=== PATIENT | female | born 1985 | race Caucasian/White ===

== ENCOUNTER 2016-12-02 18:09 | Emergency (ER) | payer SELFPAY | END 2016-12-02 21:00 | disposition home or self-care (01) | LOC: D.ER 18:09 | DX: J06.9 Acute upper respiratory infection, unspecified (principal) ==

== ENCOUNTER 2018-11-08 13:49 | Inpatient (IN) | payer MEDICAID ==
[~2018-11-08] VITALS: Ht 160 cm; Wt 47.7 kg
[2018-11-08] VITALS (9 sets, daily range): BP systolic 89–107; BP diastolic 61–79
[2018-11-08 14:51] LABS: BASOPHILS 0.3 % (0-2); EOSINOPHILS 0.6 % (0-7); HEMATOCRIT 38.8 % (36.0-48.0); HEMOGLOBIN 12.8 g/dL (12-16); IMMATURE GRANULOCYTES 0.3 % (0-5); LYMPHOCYTES 21.5 % (15-50); MCH 30.3 pg (26.0-34.0); MCV 91.7 fL (80.0-100.0); MEAN PLATELET VOLUME 9.4 fL (7.4-10.4); MONOCYTES 6.8 % (2-11); NEUTROPHILS 70.5 % (40-80); PLATELET COUNT 292 10x3/uL (130-400); RBC 4.23 10x6/uL (4.00-5.40); RDW 13.1 % (11.5-14.5); WBC 11.9 10x3/uL (4.8-10.8)
[2018-11-08 14:59] LABS: APTT 29.1 SECONDS (22.8-39.4); INR 1.24 (0.85-1.17)
[2018-11-08 15:06] LABS: ALBUMIN 2.6 g/dL (3.4-5.0); ALKALINE PHOSPHATASE 135 U/L (46-116); ALT (SGPT) 129 U/L (10-68); BILIRUBIN - TOTAL 0.33 mg/dL (0.2-1.3); CALC OSMOLALITY 279 mosm/kg (275-300); CALCIUM 7.8 mg/dL (8.5-10.1); CARBON DIOXIDE 25.4 mmol/L (21.0-32.0); CHLORIDE - SERUM 104 mmol/L (98-107); CREATININE - SERUM 0.9 mg/dL (0.6-1.3); GLUCOSE 76 mg/dL (74-106); POTASSIUM - SERUM 4.3 mmol/L (3.5-5.1); PROTEIN - SERUM 5.9 g/dL (6.4-8.2); SODIUM 140 mmol/L (136-145); UREA NITROGEN 17 mg/dL (7-18); eGFR NON AFRICAN AMERICAN 77 mL/min (90-120)
[2018-11-08 15:16] LABS: CKMB 1.9 U/L (0.0-3.6); CREATINE KINASE 77 UL (21-215); MAGNESIUM - SERUM 1.9 mg/dL (1.8-2.4); TROPONIN-I 0.023 ng/mL (0.000-0.060)
--- NOTE | 2018-11-08 16:00 | NUR ---
PT STABLE, CALL LIGHT WITHIN REACH, DENIES NEEDS, WILL CONTINUE TO MONITOR.
--- NOTE | 2018-11-08 17:00 | NUR ---
PT STABLE,CALL LIGHT WITHIN REACH, PT ASKING FOR PHONE FLAKE MILLER HELPER. PT STABLE,CALL LIGHT WITHIN REACH, WILL CONTINUE TO MONITOR.
--- NOTE | 2018-11-08 18:05 | NUR ---
PT STABLE, CALL LIGHT WITHIN REACH, DENIES NEEDS, WILL CONTINUE TO MONITOR.
--- NOTE | 2018-11-08 19:07 | NUR ---
PT REPORT CALLED TO NURSE MIKAL. PT STABLE, CALL LIGHT WITHIN REACH, DENIES NEEDS, WILL CONTINUE TO MONITOR.
[2018-11-08 19:30] LABS: CKMB 1.9 U/L (0.0-3.6); CREATINE KINASE 63 UL (21-215); TROPONIN-I 0.034 ng/mL (0.000-0.060)
--- NOTE | 2018-11-08 19:31 | NUR ---
PT ARRIVED TO ROOM 2115, PT IS AAO UP AD ALEJANDRO. PT HAS RIGHT AC 20G WITH CARDIZEM INFUSING AT 5, STARTED NS INFUSING AT 125. PT GIVEN A SANDWINCH AND WATER. PT PLACED ON TELEMETRY 105 ST. PT BEDLOW AND CALL LIGHT IN REACH. NAME AND DATE PLACED ON BOARD. WILL CPOC
[2018-11-09] VITALS (7 sets, daily range): BP systolic 92–118; BP diastolic 55–69; Ht 160 cm; Wt 47.7 kg
[2018-11-09 00:56] LABS: CKMB 1.8 U/L (0.0-3.6); CREATINE KINASE 70 UL (21-215); TROPONIN-I 0.029 ng/mL (0.000-0.060)
--- NOTE | 2018-11-09 02:37 | NUR ---
PT ASLEEP LAYING ON RIGHT SIDE. PT HAS NO S/S OF DISTRESS. NS INFUSING TO RIGHT AC, CARDIZEM INFUSING AT 5. [address] ON THE MONITOR. PT HAS NO S/S OF DISTRESS. BEDLOW AND CALL LIGHT IN REACH. WILL CPOC
[2018-11-09 06:27] LABS: BASOPHILS 0.4 % (0-2); EOSINOPHILS 2.9 % (0-7); HEMATOCRIT 36.1 % (36.0-48.0); HEMOGLOBIN 11.7 g/dL (12-16); IMMATURE GRANULOCYTES 0.2 % (0-5); LYMPHOCYTES 27.9 % (15-50); MCH 29.5 pg (26.0-34.0); MCHC 32.4 g/dL (31.0-37.0); MCV 91.2 fL (80.0-100.0); MEAN PLATELET VOLUME 9.6 fL (7.4-10.4); MONOCYTES 6.6 % (2-11); PLATELET COUNT 346 10x3/uL (130-400); RBC 3.96 10x6/uL (4.00-5.40); RDW 13.1 % (11.5-14.5); WBC 9.7 10x3/uL (4.8-10.8)
--- NOTE | 2018-11-09 07:09 | NUR ---
PT RESTING IN BED. PT 83 SR. PT HAS NO S/S OF DISTRESS BEDLOW AND CALL LIGHT IN REACH. WILL CONTINUE TO MONITOR
[2018-11-09 07:11] LABS: ALBUMIN 2.4 g/dL (3.4-5.0); ALKALINE PHOSPHATASE 116 U/L (46-116); ALT (SGPT) 106 U/L (10-68); CALC OSMOLALITY 287 mosm/kg (275-300); CALCIUM 7.8 mg/dL (8.5-10.1); CARBON DIOXIDE 24.3 mmol/L (21.0-32.0); CHLORIDE - SERUM 108 mmol/L (98-107); CREATININE - SERUM 0.9 mg/dL (0.6-1.3); GLUCOSE 95 mg/dL (74-106); POTASSIUM - SERUM 4.5 mmol/L (3.5-5.1); PROTEIN - SERUM 6.1 g/dL (6.4-8.2); SODIUM 143 mmol/L (136-145); UREA NITROGEN 20 mg/dL (7-18); eGFR NON AFRICAN AMERICAN 77 mL/min (90-120)
[2018-11-09 07:12] LABS: CKMB 1.5 U/L (0.0-3.6); CREATINE KINASE 77 UL (21-215); TROPONIN-I < 0.017 ng/mL (0.000-0.060)
[2018-11-09 07:22] LABS: BILIRUBIN - TOTAL 0.11 mg/dL (0.2-1.3)
--- NOTE | 2018-11-09 15:41 | NUR ---
TELEMETRY ST 108. IV PATENT. CALL LIGHT IN REACH. WILL CONT. PLAN OF CARE.
--- NOTE | 2018-11-09 16:49 | NUR ---
UP AMBULATING HALLWAY. GAIT STEADY.
--- NOTE | 2018-11-09 19:19 | NUR ---
pt not in room upon rounds. will check hallway to see if pt is walking unit and check telemetry to monitor heart rate. placed name and date on board. will update notes once pt is seen.
--- NOTE | 2018-11-09 20:00 | NUR ---
PT BACK INTO ROOM. EXPLAINED TO PT NOT TO BE GONE SO LONG, TELEMETRY WAS READING WHEN CHECKED SO PT WAS IN BUILDING, SHE ADMITED TO BEING OUT SIDE AT ONE TIME FOR A CIGG. EDUCATED IN RISK OF SMOKING AND RISK OF SMOKING WITH A NICOTINE PATCH ON. PT STATED SHE TOOK OFF THE PATCH HOURS AGO BECAUSE IT WAS CAUSING NIGHTMARES AND HER FATHER SAID SHE COULD BE HAVING AN ALLERGIC REACTION. SPOKE WITH PT ABOUT RULES, NO LEAVING PARKING LOT OR REPORTED TO POLICE. NO LEAVING AFTER STRONG MEDICATIONS GIVEN. AND IF GONE LONGER THAN 30 MINS NURSE WILL CALL SECERITY. PT VERBALIZED UNDERSTANDING AND ASKED FOR SOMETHING FOR RESTLESSNESS. WILL CHECK ORDERS
--- NOTE | 2018-11-09 22:52 | NUR ---
PT GIVEN ATIVAN FOR ANXIETY AND RESTLESSNESS. PT WILL CALL FOR ASSIST WHEN NEEDED,. WILL CPOC
--- NOTE | 2018-11-10 03:03 | NUR ---
PT SITTING UP IN BED COMPLAINING OF RESTLESSNESS AND ANXIETY ASKING FOR THE MED I GAVE HER EARLIER. GAVE PT AN ATIVAN ORDERED. PT HAS NO S/S OF DISTRESS. BEDLOW AND CALL LIGHT IN REACH. WILL CPOC
--- NOTE | 2018-11-10 03:17 | NUR ---
PT CALLING FOR A SNACK. PT RECEIVED.
--- NOTE | 2018-11-10 06:28 | NUR ---
PT ASLEEP. AROUSES TO VERBAL STIMULI. PT RESP EVEN AND UNLABORED. NO S/S OF DISTRESS. PT AAO. UP AD ALEJANDRO. DENIES ANY NEEDS. HAS CALL LIGHT IN REACH. WILL CALL FOR ASSIST WHEN NEEDED. WILL CPOC
[2018-11-10 07:50] LABS: ALBUMIN 2.1 g/dL (3.4-5.0); ALKALINE PHOSPHATASE 108 U/L (46-116); ALT (SGPT) 91 U/L (10-68); BILIRUBIN - TOTAL 0.12 mg/dL (0.2-1.3); CALC OSMOLALITY 280 mosm/kg (275-300); CARBON DIOXIDE 23.8 mmol/L (21.0-32.0); CHLORIDE - SERUM 107 mmol/L (98-107); CREATININE - SERUM 0.9 mg/dL (0.6-1.3); GLUCOSE 92 mg/dL (74-106); POTASSIUM - SERUM 4.1 mmol/L (3.5-5.1); PROTEIN - SERUM 5.5 g/dL (6.4-8.2); SODIUM 140 mmol/L (136-145); UREA NITROGEN 17 mg/dL (7-18); eGFR NON AFRICAN AMERICAN 77 mL/min (90-120)
[2018-11-10 07:52] LABS: BASOPHILS 0.6 % (0-2); EOSINOPHILS 4.2 % (0-7); HEMATOCRIT 32.9 % (36.0-48.0); HEMOGLOBIN 10.6 g/dL (12-16); IMMATURE GRANULOCYTES 0.2 % (0-5); LYMPHOCYTES 23.2 % (15-50); MCH 29.4 pg (26.0-34.0); MCHC 32.2 g/dL (31.0-37.0); MCV 91.1 fL (80.0-100.0); MEAN PLATELET VOLUME 9.5 fL (7.4-10.4); MONOCYTES 8.3 % (2-11); NEUTROPHILS 63.5 % (40-80); PLATELET COUNT 368 10x3/uL (130-400); RBC 3.61 10x6/uL (4.00-5.40); RDW 12.8 % (11.5-14.5); WBC 10.5 10x3/uL (4.8-10.8)
[2018-11-10 08:39] VITALS: BP 107/67
--- NOTE | 2018-11-10 10:03 | NUR ---
TELEMETRY SR. UP AMBULATING HALLWAY. WILL CONT. PLAN OF CARE.
[2018-11-10] MEDS ORDERED: LANOXIN125 MCG PO (13:20)
--- NOTE | 2018-11-10 17:15 | MORECARE ---
CASE MANAGEMENT DISCHARGE SUMMARY PATIENT: JAYCE FERNÁNDEZ UNIT: [id number] ADM DATE: 11/08/18 AGE: 33 : [birth year] SEX: F ROOM/BED: D.4366 AUTHOR: NANDA,DOC PHYSICIAN: REFERRING PHYSICIAN: ALEKSANDR ARCHER DO DATE OF SERVICE: 11/10/18 Discharge Plan Patient Name: JAYCE FERNÁNDEZ Facility: [facility]:[place] : 1985 Planned Disposition: Home Anticipated Discharge Date: 11/10/18 Discharge Date: Expected LOS: 2 Initial Reviewer: [email or web address] Initial Review Date: 11/10/2018 Generated: 11/10/18 6:14 pm Comments DCP- Discharge Planning Updated by [email or web address]: Panda Sears on 11/10/18 4:[address] Patient Name: JAYCE FERNÁNDEZ Admission Status: ER Accout number: [id number] Admission Date: 11-08-2018 : 1985 Admission Diagnosis:SUPRAVENTRICULAR TACHYCARDIA Attending: ALEKSANDR ARCHER Current LOS: 2 Anticipated DC Date: 11-10-2018 Planned Disposition: Home Primary Insurance: MEDICAID [place] PENDING Discharge Planning Comments: CM MET WITH PT IN ROOM TO DISCUSS DISCHARGE PLANNING AND NEEDS. PT REPORTS LIVING AT HOME INDEPENDENTLY WITH A FRIEND. PT HAS NO MEDICAL EQUIPMENT AND NO OUTSIDE SERVICES ASSISTING IN THE HOME. CM DISCUSSED AVAILABILITY OF HOME HEALTH, REHAB SERVICES AND MEDICAL EQUIPMENT. PT DENIES DISCHARGE NEEDS, REPORTS HER FRIEND WILL PICK HER UP FOR DISCHARGE HOME. CM PROVIDED [facility] INFORMATION TO PT. Halftone Operator: Panda Sears DCPIA - Discharge Planning Initial Assessment Updated by [email or web address]: Panda Sears on 11/10/18 5:07 pm * Is the patient Alert and Oriented? Yes * How many steps to enter\exit or inside your home? NONE * PCP NONE - REFERRED TO [facility] IN [place] * Pharmacy [address] * Preadmission Environment Home with Family * ADLs Independent * Equipment None * Other Equipment NO MEDICAL EQUIPMENT PROVIDER PREFERENCE * List name and contact numbers for known caregivers / representatives who currently or will assist patient after discharge: CHALINO RIBEIRO, MOTHER, * Verbal permission to speak to the caregivers and representatives has been obtained from the patient. No * Community resources currently utilized None * Please name any agencies selected above. NONE * Additional services required to return to the preadmission environment? No * Can the patient safely return to the preadmission environment? Yes * Has this patient been hospitalized within the prior 30 days at any hospital? No Patient Name: JAYCE FERNÁNDEZ Page [phone] at 1715 All edits/amendments must be made on the electronic document DICTATION DATE: 11/10/181713 KILN STOKER: LEONIDAS 11/10/181713 RPT#: [id number] DC DATE: STATUS: ADM IN [facility] [address] [place] [address] END OF REPORT
--- NOTE | 2018-11-10 17:35 | NUR ---
IV AND TELEMETRY DCD. DC PLANS GIVEN. UNDERSTANDING VOICED.
--- NOTE | 2018-11-18 12:54 | EC ---
PATIENT:JAYCE FERNÁNDEZ DATE OF SERVICE: 11/08/18 SEX: F MEDICAL RECORD: [id number] DATE OF : [birth year] LOCATION:D.M2 D.211 AGE OF PATIENT: 33 ADMISSION DATE: 11/08/18 REFERRING PHYSICIAN: INTERPRETING PHYSICIAN: DIXIE SHAIKH MD ECHOCARDIOGRAM REPORT ECHO CHARGES 4 ECHO COMPLETE Date: 11/09/18 CLINICAL DIAGNOSIS: SVT HX OF IV DRUG USE ECHOCARDIOGRAPHIC MEASUREMENTS (adult normal given) AC root (d.<3.7cm) 3.5 cm LV Septum d (<1.2 cm> 1.0 cm Valve Excursion 1.5 cm LV Septum (systole) 1.3 cm Left Atria (s.<4.0cm> 3.1 cm LVPW d(<1.2cm) 1.1 cm RV (d.<2.3cm) 3.2 cm LVPW (sytole) 1.3 cm LV diastole(<5.6CM) 4.4 cm MV E-F(>70mm/sec) cm LV systole 3.5 cm LVOT Diameter 1.6 cm MV exc.(>10mm) 1.7 cm Est.ejection fraction (50-75%) % DOPPLER: LVIT cm/sec A 94.0 cm/sec E 107 cm/sec LA cm/sec RVSP 51 mmHg LVOT 104 cm/sec AOP1/2T m/s Asc. Ao 139 cm/sec RVOT 87 cm/sec RA cm/sec PA 134 cm/sec AV Gradient Peak 778 mmHg AV Mean 4.52 mmHg AV Area 1.5 cm MV Gradient Peak 6.38 mmHg MV Mean 2.58 mmHg MV Area cm COMMENTS: Abap Developer: 2 YI FAJARDO Clarifier Operator Helper: 3 Dr. Leroy TAPE# PACS Pericardial Effusion N DATE OF SERVICE: Adequate 2-D echo, color flow and spectral Doppler, and M-mode. No LVH. LV internal dimensions are normal. Wall motion is normal. EF is greater than or equal to 55%. Aortic valve is tricuspid. No evidence of stenosis by Doppler interrogation. Left atrium is normal. Mitral valve shows no prolapse. Trace MR. Right-sided chambers are grossly normal. Trace TR. TRANSINT:[id number] Voice Confirmation ID: [id number] DOCUMENT ID: [id number] ECHOCARDIOGRAM REPORT [id number] JAYCE FERNÁNDEZ,DIXIE Alcala MD at 1254 CC: [id number] DICTATION DATE: 11/09/18 140 FORENSIC PHOTOGRAPHER: 11/09/18 1858 DIS IN 11/10/18 [place] [id number] [place] [id number]
--- NOTE | 2018-11-18 12:54 | CN ---
PATIENT NAME:JAYCE FERNÁNDEZ MEDICAL RECORD: [id number] : [birth year] LOCATION:D.Anabela D.2116 ADMIT DATE: 11/08/18 ACCOUNT: [id number] CONSULTING PHYSICIAN: DIXIE SHAIKH MD REFERRING PHYSICIAN: ALEKSANDR ARCHER DO DATE OF CONSULTATION: 11/09/2018 HISTORY OF PRESENT ILLNESS: A 33-year-old female with history of methamphetamine abuse, admitted with SVT, last use by her report was 3 days ago. She has a history of SVT apparently in the past. She reports no fever or chills, but feeling poorly the last 2 weeks. We are asked to see concerning her cardiovascular status. PAST MEDICAL HISTORY: Includes history of supraventricular tachycardia. ALLERGIES: None known. MEDICATIONS: None chronically. SOCIAL HISTORY: Meth use as described above. Does smoke about half pack a day, nondrinker. REVIEW OF SYSTEMS: The patient reports easy bruising but reports no swollen glands. The patient reports no fever, no night sweats, no significant weight gain, no significant weight loss. No significant exercise tolerance. The patient reports no dry eyes, no irritation, no vision change. Patient reports no difficulty hearing and no ear pain. Patient reports no frequent nose bleeds or nose and sinus problems. Patient reports on arm pain on exertion. No shortness of breath while lying down. No history of heart murmur. Patient reports no cough, no wheezing or coughing up blood. Patient reports no abdominal pain, no vomiting. Normal appetite. No diarrhea and not vomiting blood. No nausea and no constipation. Patient reports no incontinence. No difficulty urinating. No hematuria. No increased frequency. Patient reports no muscle aches. No weakness, no arthralgias, no back pain. No swelling of the extremities. Patient reports no abnormal mole, no jaundice, no rashes. Reports no loss of consciousness. No weakness and no numbness. No seizures, dizziness, or headaches. The patient reports no depression, no sleep disturbance, feeling safe in a relationship and no alcohol abuse. Patient reports on fatigue. Reports no runny nose or sinus pressure. No itching, no hives, and no frequent sneezing. PHYSICAL EXAMINATION: GENERAL: Somewhat chronically ill-appearing female in no acute distress. VITAL SIGNS: Her pulse 90, blood pressure was 96/59. HEENT: Normocephalic, atraumatic. NECK: No JVD or bruit. HEART: Regular, soft I/ systolic ejection murmur. LUNGS: Good air excursion. ABDOMEN: Soft, nontender. EXTREMITIES: Pulses 2+. No edema. NEUROLOGIC: Grossly intact. DIAGNOSTIC DATA: ECG shows no acute changes post-cardioversion. IMPRESSION AND PLAN: Supraventricular tachycardia certainly exacerbated by CONSULT REPORT [id number] JAYCE FERNÁNDEZ methamphetamine use. Given the chronicity of her illness, certainly SBE is concern here. We will plan for echocardiograph study. She currently does not have stigmata of infective endocarditis on clinical exam. TRANSINT:[id number] Voice Confirmation ID: [id number] DOCUMENT ID: [id number] DIXIE SHAIKH MD at 1254 CC: [id number] DICTATION DATE: 11/09/18 0840 PARASITOLOGY TEACHER: 11/09/18 1001 DIS IN 11/10/18 [place] [id number] [place] [address]
== END 2018-11-10 17:36 | disposition home or self-care (01) | DRG 309 ==
LOC: D.ER 13:49 → D.M2 19:22
PROVIDERS: Family Medicine; ADMIT Family Medicine
DX: I47.1 Supraventricular tachycardia (principal); F17.213 Nicotine dependence, cigarettes, with withdrawal; F15.10 Other stimulant abuse, uncomplicated; M25.532 Pain in left wrist; M25.512 Pain in left shoulder

== ENCOUNTER 2019-06-13 12:59 | Emergency (ER) | payer MEDICAID ==
[~2019-06-13] VITALS: Ht 160 cm; Wt 50.0 kg
[~2019-06-13 12:59] MED LIST: LANOXIN125 MCG PO
[2019-06-13 13:06] VITALS: Ht 160 cm; Wt 50.0 kg
[2019-06-13 13:34] LABS: BASOPHILS 0.6 % (0-2); EOSINOPHILS 1.5 % (0-7); HEMATOCRIT 35.7 % (36.0-48.0); HEMOGLOBIN 12.1 g/dL (12-16); IMMATURE GRANULOCYTES 0.2 % (0-5); LYMPHOCYTES 34.1 % (15-50); MCH 30.1 pg (26.0-34.0); MCHC 33.9 g/dL (31.0-37.0); MCV 88.8 fL (80.0-100.0); MEAN PLATELET VOLUME 9.6 fL (7.4-10.4); MONOCYTES 6.6 % (2-11); RBC 4.02 10x6/uL (4.00-5.40); RDW 13.2 % (11.5-14.5); WBC 8.8 10x3/uL (4.8-10.8)
[2019-06-13 13:43] LABS: PLATELET COUNT 238 10x3/uL (130-400)
[2019-06-13 13:44] LABS: ALKALINE PHOSPHATASE 148 U/L (46-116); ALT (SGPT) 161 U/L (10-68); BILIRUBIN - TOTAL 0.36 mg/dL (0.2-1.3); CALC OSMOLALITY 276 mosm/kg (275-300); CALCIUM 8.7 mg/dL (8.5-10.1); CARBON DIOXIDE 27.9 mmol/L (21.0-32.0); CHLORIDE - SERUM 105 mmol/L (98-107); CREATININE - SERUM 1.1 mg/dL (0.6-1.3); GLUCOSE 70 mg/dL (74-106); POTASSIUM - SERUM 4.6 mmol/L (3.5-5.1); PROTEIN - SERUM 6.3 g/dL (6.4-8.2); SODIUM 138 mmol/L (136-145); UREA NITROGEN 20 mg/dL (7-18); eGFR NON AFRICAN AMERICAN 60 mL/min (90-120)
[2019-06-13 13:49] LABS: APTT 30.1 SECONDS (22.8-39.4); INR 1.21 (0.85-1.17); PROTIME 14.8 SECONDS (11.6-15.0)
[2019-06-13 13:56] LABS: CKMB 1.7 U/L (0.0-3.6); CREATINE KINASE 276 UL (21-215)
[2019-06-13 13:57] LABS: TROPONIN-I < 0.017 ng/mL (0.000-0.060)
[2019-06-13 14:59] LABS: UDS - AMPHET POSITIVE QUAL (NEGATIVE); UDS - BARB NEGATIVE QUAL (NEGATIVE); UDS - BENZO POSITIVE QUAL (NEGATIVE); UDS - COCAINE NEGATIVE QUAL (NEGATIVE); UDS - OPIATE NEGATIVE QUAL (NEGATIVE); UDS - PCP NEGATIVE QUAL (NEGATIVE); UDS - THC POSITIVE QUAL (NEGATIVE)
[2019-06-13 16:09] VITALS: BP 105/70
== END 2019-06-13 16:15 | disposition home or self-care (01) ==
LOC: D.ER 12:59
PROVIDERS: Family Medicine
DX: F15.10 Other stimulant abuse, uncomplicated (principal); E86.0 Dehydration; I47.1 Supraventricular tachycardia

== ENCOUNTER 2019-12-22 01:44 | Observation (INO) | payer MEDICAID ==
[~2019-12-22] VITALS: Ht 160 cm; Wt 55.3 kg
--- NOTE | 2019-12-22 01:54 | NUR ---
URINE SENT WITH TALENT ENGINEER
[2019-12-22 02:02] LABS: BASOPHILS 0.4 % (0-2); EOSINOPHILS 1.9 % (0-7); HEMATOCRIT 32.5 % (36.0-48.0); HEMOGLOBIN 10.6 g/dL (12-16); IMMATURE GRANULOCYTES 0.3 % (0-5); MCH 30.3 pg (26.0-34.0); MCHC 32.6 g/dL (31.0-37.0); MCV 92.9 fL (80.0-100.0); MEAN PLATELET VOLUME 8.6 fL (7.4-10.4); MONOCYTES 7.7 % (2-11); NEUTROPHILS 70.7 % (40-80); RDW 12.8 % (11.5-14.5); WBC 16.9 10x3/uL (4.8-10.8)
[2019-12-22 02:07] LABS: PLATELET COUNT 342 10x3/uL (130-400)
[2019-12-22 02:07] LABS: GLUCOSE NEGATIVE (NEGATIVE); NITRITE POSITIVE (NEGATIVE); SPECIFIC GRAVITY 1.015 (1.005-1.020)
[2019-12-22 02:08] LABS: BACTERIA MANY /hpf (NEGATIVE); BILIRUBIN NEGATIVE (NEGATIVE); EPITHELIAL CELLS 0-5 /hpf (0-5); KETONE SMALL mg/dL (NEGATIVE); RED CELLS - URINE 0-5 /hpf (0-5); UDS - AMPHET POSITIVE QUAL (NEGATIVE); UDS - BARB NEGATIVE QUAL (NEGATIVE); UDS - BENZO POSITIVE QUAL (NEGATIVE); UDS - COCAINE NEGATIVE QUAL (NEGATIVE); UDS - OPIATE NEGATIVE QUAL (NEGATIVE); UDS - PCP NEGATIVE QUAL (NEGATIVE); UDS - THC POSITIVE QUAL (NEGATIVE); UROBILINOGEN NORMAL (NORMAL); WHITE CELLS - URINE 25-50 /hpf (NEGATIVE)
[2019-12-22 02:11] LABS: APTT 27.1 SECONDS (22.8-39.4); CALC OSMOLALITY 280 mosm/kg (275-300); CALCIUM 8.4 mg/dL (8.5-10.1); CARBON DIOXIDE 25.2 mmol/L (21.0-32.0); CHLORIDE - SERUM 107 mmol/L (98-107); CREATININE - SERUM 0.9 mg/dL (0.6-1.3); GLUCOSE 110 mg/dL (74-106); INR 0.95 (0.85-1.17); POTASSIUM - SERUM 3.8 mmol/L (3.5-5.1); PROTIME 12.7 SECONDS (11.6-15.0); SODIUM 139 mmol/L (136-145); UREA NITROGEN 18 mg/dL (7-18); eGFR NON AFRICAN AMERICAN 76 mL/min (90-120)
[2019-12-22 02:34] VITALS: BP 104/71
[2019-12-22 02:37] LABS: ALBUMIN 2.6 g/dL (3.4-5.0); ALKALINE PHOSPHATASE 77 U/L (30-120); ALT (SGPT) 20 U/L (10-68); BILIRUBIN - TOTAL 0.16 mg/dL (0.2-1.3); CKMB 3.3 U/L (0.0-3.6); CREATINE KINASE 119 UL (21-215); HCG - QUANTITATIVE (MATERNAL) 8369 mIU/mL; MAGNESIUM - SERUM 1.7 mg/dL (1.8-2.4); PROTEIN - SERUM 6.5 g/dL (6.4-8.2)
[2019-12-22 03:51] VITALS: BP 113/66; Ht 160 cm; Wt 55.3 kg
[2019-12-22 04:01] LABS: BASOPHILS 0.2 % (0-2); HEMATOCRIT 31.9 % (36.0-48.0); HEMOGLOBIN 10.2 g/dL (12-16); IMMATURE GRANULOCYTES 0.3 % (0-5); MCH 29.7 pg (26.0-34.0); MCV 92.7 fL (80.0-100.0); MEAN PLATELET VOLUME 8.8 fL (7.4-10.4); MONOCYTES 6.6 % (2-11); NEUTROPHILS 74.9 % (40-80); PLATELET COUNT 328 10x3/uL (130-400); RBC 3.44 10x6/uL (4.00-5.40); RDW 12.9 % (11.5-14.5); WBC 15.1 10x3/uL (4.8-10.8)
--- NOTE | 2019-12-22 06:14 | NUR ---
PT REC'D IN BED THIS AM AWAKE. NO DISTRESS NOTED. VSS. COCHRAN CATH EMPTIED AT THIS TIME. 550 ML NOTED. Gisel SCHAEFER RN
--- NOTE | 2019-12-22 13:07 | MORECARE ---
CASE MANAGEMENT DISCHARGE SUMMARY PATIENT: JAYCE FERNÁNDEZ UNIT: [id number] ADM DATE: 12/22/19 AGE: 34 : [birth year] SEX: F ROOM/BED: D.1274 AUTHOR: FABIANA VEE PHYSICIAN: REFERRING PHYSICIAN: JOSE SHEARER MD DATE OF SERVICE: 12/22/19 Discharge Plan Patient Name: JAYCE FERNÁNDEZ Facility: [facility]:[place] : 1985 Planned Disposition: Home Anticipated Discharge Date: Discharge Date: Expected LOS: 0 Initial Reviewer: [email or web address] Initial Review Date: 12/22/2019 Generated: 12/22/19 2:06 pm Patient Name: JAYCE FERNÁNDEZ Page [phone] at 1307 All edits/amendments must be made on the electronic document DICTATION DATE: 12/22/19 1306 ASSEMBLER DECK AND HULL: LEONIDAS 12/22/19 1306 RPT#: [id number] DC DATE: STATUS: ADM IN [facility] [address] [place] [address] END OF REPORT
--- NOTE | 2019-12-22 18:00 | MORECARE ---
CASE MANAGEMENT DISCHARGE SUMMARY PATIENT: JAYCE FERNÁNDEZ UNIT: [id number] ADM DATE: 12/22/19 AGE: 34 : [birth year] SEX: F ROOM/BED: D.1274 AUTHOR: FABIANA VEE PHYSICIAN: REFERRING PHYSICIAN: JOSE SHEARER MD DATE OF SERVICE: 12/22/19 Discharge Plan Patient Name: JAYCE FERNÁNDEZ Facility: [facility]:[place] : 1985 Planned Disposition: Home Anticipated Discharge Date: 12/22/19 Discharge Date: 12/22/2019 Expected LOS: 1 Initial Reviewer: [email or web address] Initial Review Date: 12/22/2019 Generated: 12/22/19 7:00 pm Last DP export: 12/22/19 12:07 pm Patient Name: JAYCE FERNÁNDEZ Page [id number] at 1800 All edits/amendments must be made on the electronic document DICTATION DATE: 12/22/19 1800 METAL TEMPERER: LEONIDAS 12/22/19 1800 RPT#: [id number] DC DATE:12/22/19 STATUS: DIS IN [facility] [address] [place] [address] END OF REPORT
--- NOTE | 2019-12-23 10:29 | MORECARE ---
CASE MANAGEMENT DISCHARGE SUMMARY PATIENT: JAYCE FERNÁNDEZ UNIT: [id number] ADM DATE: 12/22/19 AGE: 34 : [birth year] SEX: F ROOM/BED: D.[facility]4 AUTHOR: FABIANA VEE PHYSICIAN: REFERRING PHYSICIAN: JOSE SHEARER MD DATE OF SERVICE: 12/23/19 Discharge Plan Patient Name: JAYCE FERNÁNDEZ Facility: [facility]:[place] : 1985 Planned Disposition: Home Anticipated Discharge Date: 12/22/19 Discharge Date: 12/22/2019 Expected LOS: 1 Initial Reviewer: [email or web address] Initial Review Date: 12/22/2019 Generated: 12/23/19 11:29 am Last DP export: 12/22/19 4:00 pm Patient Name: JAYCE FERNÁNDEZ Page [phone] at 1029 All edits/amendments must be made on the electronic document DICTATION DATE: 12/23/19 1029 INSPECTOR SEMICONDUCTOR WAFER: LEONIDAS 12/23/19 1029 RPT#: [id number] DC DATE:12/22/19 STATUS: DIS IN [facility] [address] [place] [address] END OF REPORT
--- NOTE | 2019-12-23 10:42 | MORECARE ---
CASE MANAGEMENT DISCHARGE SUMMARY PATIENT: JAYCE FERNÁNDEZ UNIT: [id number] ADM DATE: 12/22/19 AGE: 34 : [birth year] SEX: F ROOM/BED: D.1274 AUTHOR: FABIANA VEE PHYSICIAN: REFERRING PHYSICIAN: JOSE SHEARER MD DATE OF SERVICE: 12/23/19 Discharge Plan Patient Name: JAYCE FERNÁNDEZ Facility: [facility]:[place] : 1985 Planned Disposition: Home Anticipated Discharge Date: 12/22/19 Discharge Date: 12/22/2019 Expected LOS: 1 Initial Reviewer: [email or web address] Initial Review Date: 12/22/2019 Generated: 12/23/19 11:41 am Last DP export: 12/23/19 9:29 am Patient Name: JAYCE FERNÁNDEZ Page [phone] at 1042 All edits/amendments must be made on the electronic document DICTATION DATE: 12/23/19 1041 LABEL CUTTER: LEONIDAS 12/23/19 1041 RPT#: [id number] DC DATE:12/22/19 STATUS: DIS IN [facility] [address] [place] [address] END OF REPORT
== END 2019-12-22 13:25 | disposition home or self-care (01) ==
LOC: D.ER 01:44 → D.LD 03:06 → OBSVTIME 03:06 → D.LD 03:20
PROVIDERS: Family Medicine; ADMIT Obstetrics & Gynecology; ATTEND Obstetrics & Gynecology
DX: O23.42 Unspecified infection of urinary tract in pregnancy, second trimester (principal); Z3A.23 23 weeks gestation of pregnancy; O99.322 Drug use complicating pregnancy, second trimester; F15.10 Other stimulant abuse, uncomplicated; I47.1 Supraventricular tachycardia; O26.892 Other specified pregnancy related conditions, second trimester

== ENCOUNTER 2020-04-16 17:13 | Outpatient (CLI) | payer MEDICAID ==
[2019-12-22 03:51] VITALS: BMI 21.6
[2020-04-16 19:44] LABS: BILIRUBIN NEGATIVE (NEGATIVE); EPITHELIAL CELLS 0-5 /hpf (0-5); GLUCOSE NEGATIVE (NEGATIVE); KETONE NEGATIVE (NEGATIVE); NITRITE NEGATIVE (NEGATIVE); RED CELLS - URINE NONE SEEN /hpf (0-5); UROBILINOGEN NORMAL (NORMAL)
[2020-04-16 19:45] LABS: BACTERIA FEW /hpf (NEGATIVE)
[2020-04-16 20:30] LABS: UDS - AMPHET POSITIVE QUAL (NEGATIVE); UDS - BARB NEGATIVE QUAL (NEGATIVE); UDS - BENZO NEGATIVE QUAL (NEGATIVE); UDS - COCAINE NEGATIVE QUAL (NEGATIVE); UDS - OPIATE NEGATIVE QUAL (NEGATIVE); UDS - PCP NEGATIVE QUAL (NEGATIVE); UDS - THC POSITIVE QUAL (NEGATIVE)
== END 2020-04-16 21:20 | disposition home or self-care (01) ==
LOC: D.LDO 17:13
PROVIDERS: ATTEND Obstetrics & Gynecology
DX: O26.899 Other specified pregnancy related conditions, unspecified trimester (principal); Z3A.00 Weeks of gestation of pregnancy not specified

== ENCOUNTER 2020-04-19 16:53 | Inpatient (IN) | payer MEDICAID ==
[~2020-04-19] VITALS: Ht 160 cm; Wt 61.2 kg
[2020-04-19] VITALS (8 sets, daily range): BP systolic 127–135; BP diastolic 80–95; Ht 160 cm; Wt 61.2 kg
[2020-04-19 18:31] LABS: HEMATOCRIT 32.6 % (36.0-48.0); HEMOGLOBIN 10.7 g/dL (12-16); MCH 27.3 pg (26.0-34.0); MCHC 32.8 g/dL (31.0-37.0); MCV 83.2 fL (80.0-100.0); MEAN PLATELET VOLUME 10.6 fL (7.4-10.4); RBC 3.92 10x6/uL (4.00-5.40)
[2020-04-19 18:44] LABS: UDS - AMPHET POSITIVE QUAL (NEGATIVE); UDS - BARB NEGATIVE QUAL (NEGATIVE); UDS - BENZO NEGATIVE QUAL (NEGATIVE); UDS - COCAINE NEGATIVE QUAL (NEGATIVE); UDS - OPIATE NEGATIVE QUAL (NEGATIVE); UDS - PCP NEGATIVE QUAL (NEGATIVE); UDS - THC POSITIVE QUAL (NEGATIVE)
--- NOTE | 2020-04-19 20:30 | NUR ---
REC'D PT TO RM 1278 FROM RECOVERY POST REPEAT . PT AA&O X4. PAIN ASSESSED. PT REPORTS ABD CRAMPING 6-04/25. REPORT REC'D FROM RECOVERY NURSE THAT 2MG OF DILAUDID AND TORADOL 30MG GIVEN IN RECOVERY. PAIN MEDICATION TEACHING GIVEN. PT HAS PIV TO RT SIDE. 2ND BAG OF PITOCIN CONNECTED. PLACED ON PUMP TO INFUSE AT 125ML/HR. LOW TRANSVERSE INCISION W/LARGE ABD DRESSING C/D/I.FUNDUS FIRM,U/U, W/SLIGHT SHIFT TO RT. SMALL SEROSANGUINEOUS LOCHIA NOTED. COCHRAN CATH IN PLACE DRAINING VIA GRAVITY TO BEDSIDE. APPROX 10ML URINE NOTED.RECOVERY NURSE REPORTS AMOUNT IS FOR PAST 30MINS. UROMETER DUMPED AT THIS TIME. SCD WRAPS IN PLACE BILATERALLY. CONNECTED TO PUMP. PUMP IS ON AND FUNCTIONING. PT HAS FULL RANGE OF MOTION. POC DISCUSSED W/PT.
--- NOTE | 2020-04-19 20:45 | NUR ---
FUNDUS FIRM,U/U, SMALL LOCHIA NOTED. I.S. PROVIDED W/TEACHING. PT ABLE TO PULL 2000 W/GOOD EFFORT. COUGHS W/ABD SPLINTING. T/C/D TEACHING GIVEN. PT VERBALIZES UNDERSTANDING. PT REPOSITIONS SELF UP IN BED AT THIS TIME. ICE CHIPS SERVED. FRIEND AT BEDSIDE.
--- NOTE | 2020-04-19 21:00 | NUR ---
TO BEDSIDE. PT AA&O X 4. RATES PAIN 5/10. CURRENLY VISITING W/FRIEND AT BEDSIDE. FUNDUS FIRM,U/U, SMALL TO MODERATE LOCHIA NOTED. NO PAD CHANGE AT THIS TIME. PT DENIES NEEDS.
--- NOTE | 2020-04-19 21:15 | NUR ---
TO BEDSIDE. PT SITTING UP IN BED HOLDING BABY AND TALKING W/FRIEND. PAIN ASSSSED. PT REPORTS PAIN 5/10. NO REQUEST FOR ADDITIONAL PAIN INTERVENTIONS AT THIS TIME. FUNDUS FIRM,U/1, SMALL TO MODERATE LOCHIA NOTED. PREICARE DONE. CLEAN PINK PAD/CHUX/TOWEL AND PAD PROVIDED. AXILLARY TEMP OF 97.5. SEE FLOWSHEET FOR COMPLETE VITAL SIGNS. PT DENIES NEEDS AT THIS TIME. APPROX 20ML URINE NOTED IN UROMETER. SCD WRAPS REMAIN ON AND FUNCTIONING. BED IN LOW POSITION, SIDE RAILS UP X 2. CALL LIGHT AND PHONE AT PT'S SIDE.
--- NOTE | 2020-04-19 21:30 | NUR ---
TO BEDSIDE. PT SITTING UP IN BED W/BABY UP IN ARMS. BABY TRANSFERED TO OPEN CRIB FOR NBN NURSE. FUNDUS FIRM,U/1, SMALL RUBRA LOCHIA NOTED. NO CLOTS EXPRESSED W/MASSAGE. NO PERIPAD CHANGE AT THIS TIME. PT REPORTS PAIN 3/10. NO NEEDS VOICED PER PT.
--- NOTE | 2020-04-19 22:00 | NUR ---
TO BEDSIDE. PT SITTING UP IN BED W/BABY UP IN ARMS. RATES PAIN 3/10. SMALL RUBRA LOCHIA NOTED. NO PERIPAD CHANGE AT THIS TIME. SCANT URINE OUTPUT NOTED. PT DENIES NEEDS.
--- NOTE | 2020-04-19 22:30 | NUR ---
TO BEDSIDE. PAIN AND NEEDS ASSESSED. PT REPORTS PAIN 3/10. NO ADDITIONAL PAIN INTEVENTIONS REQUESTED. PT QUESTIONS IF SHE CAN HAVE ANYTHING TO EAT. INFORMED THAT SHE MAY HAVE A CLEAR LIQUID DIET. PT AGREEABLE. DENIES NAUSEA. LOCHIA ASSESSED. SMALL TO MODERATE RUBRA LOCHIA NOTED. PERICARE DONE. CLEAN PAD PLACED. SCANT URINE OUTPUT NOTED. UROMETER DUMPED.
--- NOTE | 2020-04-19 22:35 | NUR ---
200ML CHICKEN BROTH, 200ML OF [place] AND [facility] MUG W/APPROX 400ML WATER SERVED. PO FLUID INTAKE TEACHING PROVIDED. PT ENCOURAGED TO BEGIN DRINKING MUCH WATER SHE POSSIBLY CAN. PT AGREEABLE.
--- NOTE | 2020-04-19 22:56 | NUR ---
IV PUMP SOUNDING. THIS RN TO BEDSIDE. 500ML BOLUS COMPLETE. PT INTERMITTENTLY DOZING OFF. BABY TRANSFERED TO OPEN CRIB AT BEDSIDE FOR SAFETY. PT AGAIN ENCOURAGED TO DRINK THE PO LIQUIDS PROVIDED W/ADDITIONAL OUTPUT TEACHING GIVEN. PT AGREEABLE.
--- NOTE | 2020-04-19 23:33 | NUR ---
DR SHEARER CALLED AND GIVEN REPORT OF PT'S UINBE OUTPUT OVER THE PAST 3HRS. ORDERS REC'D TO ADMIN BOLUS OF 500ML NS NOW AND THEN INFUSE AT 500ML/HR X 1&1/2HRS.
--- NOTE | 2020-04-20 00:10 | NUR ---
TO BEDSIDE. PT AA&O X 4. PAIN AND NEEDS ASSESSED. PT REPORTS PAIN IS BEGINING TO RISE. PT INFORMED SHE MAY NOW HAVE ADDITIONAL PAIN MEDICATION. PT VERBALZIES UNDERSTANDING. MIDNIGHT VITAL SIGNS OBTAINED. SEE FLOWSHEET. I.S./C PERFORMED. PT REPOSITIONS SELF UP IN BE AND IS ABLE TO RAISE BUTTOCKS FOR PAD AND TOWEL CHANGE. SMALL RUBRA LOCHIA NOTED ON CURRENT PAD. CLEAN PAD PLACED. SCD WRAPS REMAIN IN PLACE BILATERALLY. STILL CONNECTED TO PUMP. PUMP IS ON AND FUNCTIONING. PT HAS DRANK ALL OF THE CHICKEN BROTH SERVED. ALL [place] SOD[place] AND APPROX 100ML OF WATER (TOTAL= APPROX 500ML).
[2020-04-20 00:13] VITALS: BP 119/70
--- NOTE | 2020-04-20 00:30 | NUR ---
BABY TRANSPORTED VIA OPEN CRIB TO NBN. FRESH ICE CAP TO ABD.
--- NOTE | 2020-04-20 00:43 | NUR ---
APPROX 15ML URINE OUTPUT NOTED FOR 0030 TOTAL. 500ML BOLUS COMPLETED. RATE SLOWED TO 50ML WHILE 2MG DILUADID DILUTED IN 5ML OF NS GIVEN SIVP OVER 5 MINS. FOR C/O ABD SORENESS THAT PT RATES 5/10. PT DOZES OFF PERIODICALLY WHILE THIS RN AT BEDSIDE. RESP OF 12/MIN. AFTER ADMIN OF PAIN MED, HOB LOWERED. SPO2 MONITOR APPLIED WHILE PT SLEEPS. PT DENIES NEEDS. PLANS TO REST. BED LOW, SIDE RAILS UP X 2. CALL LIGHT AND PHONE AT PT'S SIDE.
--- NOTE | 2020-04-20 01:00 | NUR ---
IV FLUID NS RATE INCREASED TO 500ML/HR PER MD ORDERS FOR RATE OF ADMIN X 2 HRS.
--- NOTE | 2020-04-20 01:30 | NUR ---
ROUNDS MADE FOR URINE OUTPUT. APPROX 20ML NOTED AND DUMPED. NS W/20 UNITS OF PITOCIN STOPPED AT THIS TIME DUE TO DECREASED URINE OUTPUT. PT IN LOW FOLWER'S. RESP EVEN AND UNLABORED. AUDIBLE SNORING HEARD. PT LEFT UNDISTURBED AT THIS TIME.
--- NOTE | 2020-04-20 03:30 | NUR ---
TO BEDSIDE. PT IN HIGH LINO'S W/EYES CLOSED. RESP EVEN AND UNLABORED. PT OPENS EYES SPONTANEOUSLY W/NOISE MADE IN THE ROOM. 20ML OF URINE NOTED. NS RATE DECREASED TO 125ML/HR. NO COMPLAINTS AT THIS TIME.
--- NOTE | 2020-04-20 04:30 | NUR ---
TO BEDSIDE. PT AA&O X 4. PAIN AND NEEDS ASSESSED. PT REPORTS PAIN 5/10. PAIN MEDICATION OFFERED. PT REQUEST TO HOLD PAIN MEDICATION UNTIL SEE HAS A CHANCE TO VISIT WITH HER BABY. BREATH SOUNDS CL/=,NO EDEMA NOTED. APPROX 10ML CONCENTRATED URINE NOTED. ABD SOFT, NON DISTENDED, ABD DRESSING C/D/I, SMALL RUBRA LOCHIA NOTED. PERICARE DONE. CHUX,TOWEL AND PERIPAD CHANGED. SCD WRAPS REMAIN IN PLACE, REMAIN CONNECTED TO PUM[P. PUMP IS ON AND FUNCTIONING. PT REPOSITIONS SELF IN BED FROM SIDE TO SIDE AND UP IN BED. I.S. PERFORMED X 3 W/GOOD EFFORT, COUGH W/POOR EFFORT, BUT ATTEMPTED. IV SITE WNL W/OUT REDDNESS OR SWELLING. ICE CAP FRESHENED. FRESH ICE WATER AND ICE CHIPS SERVED. BED LOW, SIDE RAILS UP X 2. CALL LIGHT AND PHONE AT PT'S SIDE.
[2020-04-20 04:33] VITALS: BP 127/76
--- NOTE | 2020-04-20 05:30 | NUR ---
TO BEDSIDE. URINE OUTPUT 10ML OF CONCENTRATED URINE NOTED IN UROMETER AND DUMPED. PT DENIES NEEDS. REQUEST TO KNOW WHEN SHE CAN EAT. INFORMED MD WILL ROUND THIS AM AND GIVE ORDERS. PT DENIES PASSING FLATUS OF YET. EDUCATION GIVEN.
--- NOTE | 2020-04-20 06:00 | NUR ---
TO BEDSIDE TO CLEAR I&O. PUMPS CLEARED AT THIS TIME. COCHRAN CATH EMPTIED. PT QUESTIONED IF SHE IS READY FOR PAIN MEDICATION AT THIS TIME. PT DECLINES PAIN MEDICATION AT THIS TIME TO REMAIN AWAKE AND ALERT TO CARE FOR HER BABY.
--- NOTE | 2020-04-20 06:10 | NUR ---
REPORT CALLED TO DR SHEARER REGARDING PT'S I&O'S FOR PM SHIFT AND VITALS PER Gisel SCHAEFER RN. ORDERS REC'D.
[2020-04-20 07:12] VITALS: BP 110/61
--- NOTE | 2020-04-20 07:20 | NUR ---
am assessment completed. abdomen palpates soft, fundus firm, u/1, small rubra lochia, no clots expressed. see flowsheet. pt denies all needs at this time. pt is now sitting up in the bed, holding infant. sr up x2, call light and phone within reach.
--- NOTE | 2020-04-20 08:08 | NUR ---
20 ml's dark yellow urine noted in urometer. pt continues to sit up in the bed, holding and bonding with . med adm schedule reviewed with pt. pt denies all other needs. lasix 20 mg diluted in 10 ccs ns given sivp. sl flushed with 5 mls ns before and after giving lasix, no redness or swelling noted to iv site. srup x2, call light and phone within reach. pt denies all other needs at this time.
--- NOTE | 2020-04-20 09:00 | NUR ---
pt calls out health information specialist emmett stating she spilled coffee all over her gown and bed linens. to room, pt states "the coffee wasn't really that hot, i just got wet". bed linens/gown changed. scd's removed. osorio cath continues to stay in place to monitor output. pt served large ice water. denies all other needs at this time.
[2020-04-20 09:46] LABS: HEMATOCRIT 27.4 % (36.0-48.0); HEMOGLOBIN 8.4 g/dL (12-16); MCH 25.4 pg (26.0-34.0); MCHC 30.7 g/dL (31.0-37.0); MCV 82.8 fL (80.0-100.0); MEAN PLATELET VOLUME 10.2 fL (7.4-10.4); PLATELET COUNT 303 10x3/uL (130-400); RBC 3.31 10x6/uL (4.00-5.40); WBC 22.6 10x3/uL (4.8-10.8)
[2020-04-20 09:58] LABS: ANION GAP 11.6 mmol/L (8-16); CALCIUM 7.5 mg/dL (8.5-10.1); CARBON DIOXIDE 22.7 mmol/L (21.0-32.0); POTASSIUM - SERUM 4.3 mmol/L (3.5-5.1)
[2020-04-20 10:03] LABS: LYMPHOCYTES 13 % (15-50); MONOCYTES 3 % (2-11); NEUTROPHILS 83 % (40-80); PLATELET ESTIMATE NORMAL
[2020-04-20 10:04] LABS: ALBUMIN 1.9 g/dL (3.4-5.0); BILIRUBIN - TOTAL 0.31 mg/dL (0.2-1.3); PROTEIN - SERUM 5.6 g/dL (6.4-8.2)
--- NOTE | 2020-04-20 12:00 | NUR ---
dietary serves regular lunch tray to pt. pt denies all needs at this time. sr up x 2, call light and phone within reach.
--- NOTE | 2020-04-20 14:15 | NUR ---
dr. chatman on unit, to room to speak with pt.
--- NOTE | 2020-04-20 14:29 | OP ---
PATIENT NAME: JAYCE FERNÁNDEZ MEDICAL RECORD: [id number] :86 LOCATION:[id number] ADMISSION DATE:04/19/20 SURGEON: FIDENCIO SHEARER MD DATE OF OPERATION: 04/19/2020 PREOPERATIVE DIAGNOSES: 1. History of methamphetamine use in . 2. History of THC use in . 3. A 38-week gestation. 4. Labor. 5. Unwanted fertility. 6. History of prior section. POSTOPERATIVE DIAGNOSES: 1. History of methamphetamine use in . 2. History of THC use in . 3. A 38-week gestation. 4. Labor. 5. Unwanted fertility. 6. History of prior section. PROCEDURES: 1. Repeat low transverse section. 2. Right partial salpingectomy. SURGEON: Fidencio Shearer MD VOCATIONAL GUIDANCE COUNSELOR: Julio Castillo CRNA ANESTHESIA: General. FINDINGS: Viable female , vertex presentation, Apgars 9 and 9, weight 3200 grams. Placenta was unremarkable. Adhesions of the uterus to the anterior abdominal wall. Left tube is missing and left ovary not visualized. Right ovary and right tube were unremarkable. PROCEDURE SPECIMEN REMOVED: 1. Placenta. 2. Portion of right tube. SPECIMEN DISPOSITION: Pathology. ESTIMATED BLOOD LOSS: 700 cc. FLUIDS: 1600 cc lactated Ringer's. URINE OUTPUT: 100 cc clear urine. DRAINS: Ortiz to gravity. COMPLICATIONS: None. INDICATIONS: The patient is a 35-year-old G8, para 7 with no care. The patient has been seen in triage previously with dating ultrasound suggesting she is at 38 weeks today. The patient is presenting with painful regular OPERATIVE REPORT [id number] JAYCE FERNÁNDEZ uterine contractions. DESCRIPTION OF PROCEDURE: After informed consent was assured, the patient was taken to the operating room where anesthetic was obtained. The patient has been prepped and draped. An incision was made over the old scar, carried down to the underlying layer to the fascia, which was opened in the midline and extended laterally. The rectus bellies were dissected free and the peritoneum was entered sharply. Peritoneal opening was extended with immediate adhesions encountered from the anterior surface of the uterus to the abdominal wall. These were taken down with Bovie cautery. The bladder was mobilized and DeLee all-purpose retractor inserted. Low transverse hysterotomy was performed and the was delivered onto the abdomen atraumatic. Cord was doubly clamped and cut and the infant was passed to the awaiting nursery attendant. Placenta was delivered via Crede maneuver. Uterus exteriorized, cleared of all clot and debris. Uterus was now returned to the abdomen and the hysterotomy closed with a running stitch of Vicryl. Jizotk-gs-tclip was applied at the midline to obtain hemostasis. The uterus again was exteriorized and the posterior cul-de-sac cleared of clot and debris and irrigated. Attention now directed to the right tube. Window developed in the mesosalpinx and 2 ligatures were secured into this opening and the proximal and distal segments of the tube. Intervening segment of tube was excised and ostia cauterized. Adequate hemostasis was achieved. The left tube is absent. Uterus was now returned to the abdomen and using a Hernandez retractor, the abdominal wall was elevated and visualization of the tubal stumps revealed adequate hemostasis. The pelvis again was irrigated, irrigant removed and Leana placed over the hysterotomy. The rectus bellies were approximated loosely in the midline and the fascia closed with a running stitch of Vicryl. Subcutaneous tissues were irrigated, bleeding vessels cauterized, and then the skin was closed with chance. A sterile dressing was applied. Sponge, lap, and needle counts correct times 2. TRANSINT:[id number] Voice Confirmation ID: [id number] DOCUMENT ID: [id number] FIDENCIO SHEARER MD at 1429 CC: [id number] DICTATION DATE: 04/19/201945 HOUSEHOLD MANAGER: 04/20/20 0221 ADM IN [facility] [address] [id number]
[2020-04-20 16:00] VITALS: BP 114/68
--- NOTE | 2020-04-20 16:30 | NUR ---
upon entering room, pt is sitting up in the bed with eyes closed, awakened for med adm, as pt has requested pain medication to nsy nurse. srup x2, call light and phone within reach. osorio cath removed with total of 1600 mls yellow urine. pericare done with warm wet washcloths, peripad/panties on. pt denies all other needs at this time. srup x2, call light and phone within reach. in crib at bedside, no distress noted.
--- NOTE | 2020-04-20 18:00 | NUR ---
pt continues to be sitting up in the bed, asleep, pt awakened. pt encouraged to use incentive spirometer, demonstrates well. coughing and deep breathing exercises encouraged. pt has eaten regular diet for supper. kecia lemon confederated goshute served, and pt requests coffee, served. denies all other needs. srup x2, call light and phone within reach.
--- NOTE | 2020-04-20 19:07 | NUR ---
THIS RN AND A AMINAH RN TO BEDSIDE FOR BEDSIDE SHIFT REPORT. PT'S PHONE CALL BRIEFLY INTERRUPTED FOR REPORT. RN TO RETURN FOR SHIFT ASSESSMENT.
[2020-04-20 19:23] VITALS: BP 122/72
--- NOTE | 2020-04-20 19:30 | NUR ---
THIS RN TO BEDSIDE FOR SHIFT ASSESSMENT. SEE FLOWSHEET. PAIN AND NEEDS ASSESSED. PT REPORTS PAIN 5/10. NO REQUEST FOR PAIN INTERVENTIONS AT THIS TIME. AMBULATION TEACHING GIVEN. ONCE SHIFT ASSESSMENT COMPLETED. PT AGREEABLE TO AMBLATING IN HALLS AT THIS TIME. PT OUT OF BED W/OUT ASSISTANCE. SOCKS AND ADDITIONAL GOWN PROVIDED. PT TO [place] TO AMBULATE W/STEADY GAIT. DENIES DIZZINESS. PT AMBULATES TWICE IN LD HALLS BEFORE [facility]ING [facility] AND OBTAINING FRESH ICE WATER. BED LINENS CHANGED AND ROOM STRAIGTENED. PT RETURNS TO ROOM AND TO BED.
--- NOTE | 2020-04-20 20:30 | NUR ---
ROUNDS MADE. PT SITTING ON BED W/INFANT. DENIES NEEDS.
--- NOTE | 2020-04-20 21:00 | NUR ---
THIS RN TO BEDSIDE TO OFFER PAIN MEDICATION. PT REMAINS SITTING ON SIDE OF BED AND REQUEST PAIN MEDICATION FOR PAIN 04/25. PT GIVEN PERCOCET 5/325MG 1 TAB. SANDWHICH TRAY, NEDA CRACKERS AND MILK SERVED PER REQUEST. NO FURTHER NEEDS AT THIS TIME.
--- NOTE | 2020-04-20 22:30 | NUR ---
ROUNDS MADE. PT LYING IN BED W/SIG OTHER AND BABY UP IN ARMS. PAIN REASSESSED. PT REPORTS PAIN 4/10. TOLERATED ALL FOOD SERVED. DENIES NEEDS AT THIS TIME.
--- NOTE | 2020-04-21 | NUR ---
ROUNDS MADE. PT FOUND TO BE ASLEEP IN IN HIGH LINO'S W/BABY UP IN ARMS. PT AWAKENED AND REMAINDED OF SAFETY MEASURES FOR BABY'S. PT APOLOGIZES AND ALLOWS THIS RN TO TRANSFER BABY TO OPEN CRIB. VITAL SIGNS OBTAINED. SEE FLOWSHEET. PT REPORTS PAIN /. DENIES NEEDS AT THIS TIME. PT CONTINUES TO DOZE OFF WHILE THIS RN AT BEDSIDE. BABY TRANSFERED VIA CRIB TO NBN.
[2020-04-21 00:04] VITALS: BP 122/76
--- NOTE | 2020-04-21 02:00 | NUR ---
ROUNDS MADE. PT IN HIGH LINO'S W/EYES CLOSED. APPEARS TO BE SLEEPING. RESP EVEN AND UNLABORED. PT LEFT UNDISTURBED AT THIS TIME.
--- NOTE | 2020-04-21 04:30 | NUR ---
ROUNDS MADE. PT IN HIGH LINO'S W/EYES CLOED. RESP EVEN AND UNLABORED. PT LEFT UNDISTURBED AT THIS TIME.
--- NOTE | 2020-04-21 06:30 | NUR ---
ROUNDS MADE. PT RESTING W/EYES CLOSED IN HIGH LINO'S. RESP EVEN AND UNLABORED. PT LEFT UNDISTURBED.
[2020-04-21 07:22] VITALS: BP 124/88
--- NOTE | 2020-04-21 07:22 | NUR ---
SHIFT ASSESSMENT COMPLETE, VSS, SEE FLOWSHEET FOR DOC. PT ADMIN PRN PERCOCET 10 FOR PAIN RATED 9/10 AT INCISION SITE. RIGHT FOREARM PIV IS C/D/I, SALINE LOCKED. ABD DRESSING IS C/D/I. FF, ML, U/2. SMALL RUBRA LOCHIA, NO CLOTS. PT INSTRUCTED ON EMPTYING BLADDER REGULARLY AND S/S TO REPORT REGARDING LOCHIA. PT REPORTS VOIDING AT 0600 AND THAT SHE PASSED A LARGE CLOT. PT INSTRUCTED TO CALL RN FOR ANY FURTHER CLOTS TO ASSESS. 1000ML CLEAR YELLOW URINE MIXED WITH SCANT RUBRA LOCHIA NOTED IN URINE CONTAINER IN TOILET. PT ENCOURAGED AND INSTRUCTED TO MEASURE ONE MORE VOID. UNDERSTANDING VERBALIZED. POC DISCUSSED. NURSERY RN TO ROOM AT THIS TIME DISCUSSING INFANT CARE. WILL RETURN TO REASSESS PAIN.
--- NOTE | 2020-04-21 08:05 | NUR ---
THIS RN TO ROOM FOR PT CHECK AND NICOTINE PATCH ADMIN. PT AGREES SHE WANTS PATCH, RATES PAIN 8/10. PT ENCOURAGED TO ALLOW PAIN MED MORE TIME TO TAKE EFFECT, AND THIS RN WILL NOTIFY MD OF CONTINUED PAIN. OLD NICOTINE PATCH REMOVED, NEW PLACED TO LEFT UPPER ARM. PT STATES SHE WANTS TO SLEEP, REQUESTS INFANT TO NURSERY. INFANT TRANSFERRED TO NURSERY IN [facility] BY THIS RN TO CARE OF [facility]. SRUx2, CL IN REACH.
--- NOTE | 2020-04-21 09:35 | NUR ---
SPOKE WITH DR SHEARER REGARDING PT'S C/O PAIN AFTER PERCOCET. UPDATE GIVEN ON IMPROVED URINE OUTPUT. ORDER RECEIVED FOR 10MG TORADOL PO [id number] PAIN.
--- NOTE | 2020-04-21 09:50 | NUR ---
DR SHEARER ROUNDGEOFF ON PT, STATES HE WILL DISCHARGE PT TODAY. WRITTEN PRESCRIPTIONS PROVIDED FOR PAIN CONTROL POST D/C TO HOME.
--- NOTE | 2020-04-21 11:23 | NUR ---
THIS RN TO ROOM FOR PT CHECK. PT LYING IN BED, SUPINE WITH RIGHT TILT. RESTING WITH EYES CLOSED, RESP EVEN AND UNLABORED. PT LEFT UNDISTURBED FOR REST. SRUx2, CL IN REACH. WILL CONT TO MONITOR.
[2020-04-21 13:25] VITALS: BP 114/65
--- NOTE | 2020-04-21 13:27 | NUR ---
THIS RN TO ROOM FOR PT CHECK. PT SITTING UP IN BED, HOLDING . PT REPORTS PAIN SCORE OF 7-8/10 AT INCISION. PRN PERCOCET AND TORADOL ADMIN ORDERED PRN, SEE EMAR FOR DOC. PT STATES SHE JUST GOT UP TO VOID, 1000ML CLEAR YELLOW URINE MIXED WITH SCANT RUBRA LOCHIA NOTED IN URINE CONTAINER. PT DENIES HEAVY LOCHIA OR CLOTS. VSS, SEE FLOWSHEET FOR DOC. POC DISCUSSED WITH PT. PIV REMOVED WITHOUT INCIDENT, BANDAID APPLIED. SRUx2, CL IN REACH. WILL CONT TO MONITOR.
--- NOTE | 2020-04-21 13:58 | NUR ---
DR SHEARER PHONED AND UPDATE GIVEN THAT WON'T BE RELEASED UNTIL TOMORROW, AND MAY BE PLACED IN [employer] CUSTODY IF THEY DON'T CLEAR TO BE RELEASED TO MOTHER. ORDER RECIEVED TO PROCEED WITH DISCHARGE TO ROOMING IN STATUS IF PT DESIRES WHILE AWAITING [employer] DECISION FOR INFANT DISCHARGE.
--- NOTE | 2020-04-21 17:13 | NUR ---
THIS RN TO ROOM FOR PT CHECK. PT SITTING UP IN BED WITH INFANT IN LAP. PT REQUESTS "SOMETHING FOR PAIN" RATES PAIN 5-03/26. ADMIN ORDERED, SEE EMAR FOR DOC. PT PROVIDED WITH SPRITE PER REQUEST WELL. PT DENIES ANY FURTHER NEEDS. PT STATES SHE PLANS TO GET UP TO SHOWER SOON TO REMOVE DRESSING. SRUx2, CL IN REACH. WILL CONT TO MONITOR.
[2020-04-21] MEDS ORDERED: PERCOCET 7.5/321 TAB PO (18:09)
[2020-04-21] MEDS ORDERED: IBUPROFEN800 MG PO (18:09)
--- NOTE | 2020-04-21 18:15 | NUR ---
THIS RN TO ROOM FOR DRESSING REMOVAL. PT RATES PAIN APPROX 4/10, STATES PAIN IS BETTER AFTER PERCOCET. ABD DRESSING REMOVED. LOW TRANSVERSE INCISION HAS SCANT AMOUNT RED DRAINAGE, KASEY INTACT. PT INSTRUCTED ON INCISION CARE AND TO KEEP CLEAN AND DRY, WASHING DAILY WITH SOAP AND WATER. UNDERSTANDING VERBALIZED. PERIPAD PLACED OVER INCISION TO KEEP DRY. PT INSTRUCTED ON S/S TO REPORT. UNDERSTANDING VERBALIZED. ROOMING IN DISCUSSED WITH PT. STATES FRIEND IS ON THEIR WAY TO [employer] HER PRESCRIPTIONS TO GET FILLED FOR PAIN CONTROL POST DISCHARGE. PT SETTING UP DINNER TRAY AT THIS TIME. SRUx2, CL IN REACH. WILL CONT TO MONITOR.
--- NOTE | 2020-04-21 19:29 | NUR ---
PT MEDICATED FOR PAIN OF 03/26 WITH TORADOL AND PERCOCET. NO DISTRESS NOTED. DISCHARGE INSTRUCTIONS REVIEWED AT THIS TIME. UNDERSTANDING VERBAIZED. ALSO REVIEWED ROOMIN IN POLICY AND PATIENT AGREEABLE. Gisel SCHAEFER RN
--- NOTE | 2020-04-21 19:38 | NUR ---
ADACEL VACCINATION GIVEN AT THIS TIME.DISCHARGE INSTRUCTIONS AND ALL OTHER PAPERWORK SIGNED AT 1940 AND COPIES GIVEN TO PATIENT FOR PERSONAL USE. COPY OF ROOMING IN POLICY ALSO GIVEN AT THIS TIME. Gisel SCHAEFER RN
--- NOTE | 2020-04-21 19:40 | NUR ---
PT DISCHARGED TO ROOMING IN STATUS TO ROOM 1222. NO DISTRESS NOTED. Gisel SCHAEFER RN
[2020-04-22 07:14] LABS: RAPID PLASMA REAGIN Non Reactive (Non Reactive)
== END 2020-04-21 19:40 | disposition home or self-care (01) | DRG 785 ==
LOC: D.LDO 16:53 → D.LD 17:40
PROVIDERS: ADMIT Obstetrics & Gynecology; ATTEND Obstetrics & Gynecology
PROC: 10D00Z1 Extraction of Products of Conception, Low, Open Approach (ICD-10-PCS; principal; 2020-04-19 18:20)
PROC: 0UT70ZZ Resection of Bilateral Fallopian Tubes, Open Approach (ICD-10-PCS; 2020-04-19 18:20)
DX: O34.211 Maternal care for low transverse scar from previous cesarean delivery (principal); Z3A.38 38 weeks gestation of pregnancy; Z37.0 Single live birth; Z30.2 Encounter for sterilization